=== PATIENT | male | born 1950 | race Caucasian/White ===

== ENCOUNTER 2016-09-08 13:51 | Outpatient (CLI) | payer MEDICARE, OTHER | END 2016-09-08 13:52 | disposition home or self-care (01) | DX: E03.9 Hypothyroidism, unspecified (principal); Z79.899 Other long term (current) drug therapy ==

== ENCOUNTER 2016-10-07 10:33 | Outpatient (CLI) | payer MEDICARE, OTHER | END 2016-10-07 10:34 | disposition home or self-care (01) | DX: M85.89 Other specified disorders of bone density and structure, multiple sites (principal) ==

== ENCOUNTER 2016-10-14 11:54 | Emergency (ER) | payer MEDICARE, OTHER ==
[2016-10-14] MEDS ORDERED: diltiaZEM INJ 5 MG/ML VIAL IVP STA (12:14)
[2016-10-14] MEDS ORDERED: diltiaZEM INJ 5 MG/ML VIAL ONE (12:18)
[2016-10-14] MEDS ORDERED: SODIUM CHLORIDE 0.9% 1,000 ML IV ONE (12:20)
[2016-10-14] MEDS ORDERED: TETANUS/DIPHTHERIA/PERTUSSIS 0.5 ML SYRINGE IM ONE (12:24)
== END 2016-10-14 13:35 | disposition home or self-care (01) ==
DX: I48.91 Unspecified atrial fibrillation (principal); I48.92 Unspecified atrial flutter; I44.4 Left anterior fascicular block; I10 Essential (primary) hypertension; I25.2 Old myocardial infarction; Z79.82 Long term (current) use of aspirin

== ENCOUNTER 2016-11-16 09:05 | Outpatient (CLI) | payer MEDICARE, OTHER ==
[2016-11-16 18:09] LABS: CHOL/HDL RATIO 4.1 (<5.0); CHOLESTEROL 123 mg/dL; HDL CHOLESTEROL 30 mg/dL; LDL/HDL RATIO 2.2 (<3.6); TRIGLYCERIDES 128 mg/dL; VLDL CHOLESTEROL 26 mg/dL
== END 2016-11-16 09:06 | disposition home or self-care (01) ==
LOC: LAB.F 09:05
PROVIDERS: ATTEND Internal Medicine Cardiovascular Disease
DX: I25.10 Atherosclerotic heart disease of native coronary artery without angina pectoris (principal); E78.5 Hyperlipidemia, unspecified
CPT/HCPCS: 36415; 80061

== ENCOUNTER 2016-11-24 14:13 | Outpatient (CLI) | payer MEDICARE, OTHER ==
--- NOTE | 2016-11-25 09:10 | XRAY Report ---
THREE-VIEW LEFT KNEE: 11/24/2016 CLINICAL INDICATION: Pain. FINDINGS: AP, lateral, sunrise views of the left knee demonstrate mild osteoarthritis, with small os teophytes. There is no evidence of acute fracture or dislocation. No effusion is present. IMPRESSION: MILD LEFT KNEE OSTEOARTHRITIS. JOB #: [id number] EXT JOB #:[id number]
--- NOTE | 2016-11-25 09:10 | XRAY Report ---
LEFT HIP AND PELVIS: 11/24/2016 CLINICAL INDICATION: Pain. FINDINGS: Frontal view of the hips and pelvis and frogleg lateral view of the left hip demonstrate m ild left hip osteoarthritis. Fracture fixation hardware is noted in the proximal right femur. There is no evidence of acute fracture or dislocation. IMPRESSION: MILD LEFT HIP OSTEOARTHRITIS. JOB #: [id number] EXT JOB #:[id number]
== END 2016-11-24 14:14 | disposition home or self-care (01) ==
LOC: DI 14:13
PROVIDERS: ATTEND Internal Medicine
DX: M17.12 Unilateral primary osteoarthritis, left knee (principal); M16.12 Unilateral primary osteoarthritis, left hip

== ENCOUNTER 2016-12-17 09:28 | Emergency (ER) | payer MEDICARE, OTHER ==
[2016-12-17] MEDS ORDERED: diltiaZEM INJ 5 MG/ML VIAL IVP STA (09:49)
[2016-12-17] MEDS ORDERED: SODIUM CHLORIDE 0.9% 1,000 ML IV ONE ×2 (09:49→09:52)
--- NOTE | 2016-12-17 09:51 | ED Physician Documentation ---
History of Present Illness - Stated complaint Stated Complaint: RAPID HEART RATE - Chief complaint Chief Complaint: Cardiac - History obtained from History obtained from: Patient, Family - History of Present Illness Timing: Enter time (429), Today - Additonal information Additional information: 66-year-old male with a history of hypertension coronary artery disease with stents and intermittent atrial fibrillation awoke this morning at 04 30 with a feeling of fluttering in his chest and dyspnea. He recognized this feeling as atrial fibrillation and has come to the hospital. He recognizes his risk for this as spending the day yesterday cooking and drinking beer. He states the last time this happened he had spent the day prior cooking and drinking wine. Review of Systems Constitutional: denies: Fever, Chills Eyes: denies: Decreased vision Ears: denies: Ear pain Nose: denies: Congestion Throat: denies: Sore throat Cardiac: reports: Palpitations. denies: Chest pain / pressure Respiratory: reports: Dyspnea. denies: Cough GI: denies: Abdominal Pain, Nausea, Vomiting : denies: Dysuria, Frequency Skin: denies: Rash Musculoskeletal: denies: Neck pain, Back pain, Extremity pain Neurologic: denies: Generalized weakness, Focal weakness, Numbness PD PAST MEDICAL HISTORY - Past Medical History Past Medical History: Yes Cardiovascular: Hypertension, DC, Atrial fibrillation - Past Surgical History Past Surgical History: Yes Cardiovascular: Coronary stent - Present Medications Home Medications: Ambulatory Orders Medication Instructions Recorded Confirmed Aspirin [Aspir-Low] 1 tab PO DAILY 05/16/16 12/17/16 Levothyroxine Sodium 125 mg PO DAILY 05/16/16 12/17/16 Losartan [Cozaar] 1 tab PO DAILY 05/16/16 12/17/16 Metoprolol Tartrate 25 mg PO DAILY 05/16/16 12/17/16 Multivitamin [Multivitamins] 1 tab PO DAILY 05/16/16 12/17/16 Omeprazole 20 mg PO BID 05/16/16 12/17/16 Rosuvastatin [Crestor] 20 mg PO DAILY 05/16/16 12/17/16 hydroCHLOROthiazide [Hydrodiuril] 12.5 mg PO DAILY 05/16/16 12/17/16 - Allergies Allergies/Adverse Reactions: Allergies Allergy/AdvReac Type Severity Reaction Status Date / Time atorvastatin AdvReac Severe Edema Verified 10/14/16 12:33 - Social History Does the pt smoke?: No Does the pt drink ETOH?: No Does the pt have substance abuse?: No PD ED PE NORMAL - Vitals Vital signs reviewed: Yes (tachy and hypertensive ) - General General: Alert and oriented X 3, No acute distress, Well developed/nourished - HEENT HEENT: Atraumatic, PERRL, EOMI - Neck Neck: Supple, no meningeal sign - Cardiac Cardiac: No murmur, Other (irregularly irregular) - Respiratory Respiratory: No respiratory distress, Clear bilaterally - Abdomen Abdomen: Soft, Non tender - Back Back: No CVA TTP, No spinal TTP - Derm Derm: Normal color, Warm and dry, No rash - Extremities Extremities: No deformity, No edema - Neuro Neuro: Alert and oriented X 3, No motor deficit, No sensory deficit, Normal speech - Psych Psych: Normal mood, Normal affect Results - Vitals Vitals: Vital Signs - 24 hr 12/17/16 12/17/16 12/17/16 09:34 09:54 10:00 Temperature 36.6 C Heart Rate 124 H 110 H 78 Respiratory 18 20 21 Rate Blood Pressure 151/101 H 117/79 105/60 O2 Saturation 96 96 95 12/17/16 12/17/16 10:05 11:07 Temperature Heart Rate 78 57 L Respiratory 16 Rate Blood Pressure 105/60 130/76 O2 Saturation 96 99 Oxygen O2 Source Room air - EKG (time done) 0939 Rate: Rate (enter#) (142) Rhythm: Atrial flutter Sigel: LAD Intervals: Prolonged QT Compare to prior EKG: Changed from prior EKG (SPT 10-14-16 rhythm has changed and rate has increased. ) Computer interpretation: Agree with computer 1041 Rate: Rate (enter#) (57) Rhythm: NSR Sigel: LAD Compare to prior EKG: Changed from prior EKG (rhythm has converted and rate is slower) Computer interpretation: Agree with computer - Labs Labs: Laboratory Tests 12/17/16 12/17/16 12/17/16 09:36 09:36 09:36 WBC 11.6 H RBC 5.11 Hgb 15.4 Hct 45.8 MCV 89.7 MCH 30.2 MCHC 33.6 RDW 13.5 Plt Count 177 MPV 9.1 Neut # 8.0 H Lymph # 1.8 Fisher # 0.8 Eos # 1.0 H Baso # 0.1 Absolute Nucleated RBC 0.00 Nucleated RBCs 0.0 Sodium 141 Potassium 4.2 Chloride 106 Carbon Dioxide 25 Anion Gap 10.0 BUN 14 Creatinine 0.8 Estimated GFR (MDRD) 96 Glucose 108 H Calcium 9.6 Total Bilirubin 0.6 AST 35 ALT 37 Alkaline Phosphatase 40 L Troponin I < 0.04 Total Protein 7.5 Albumin 4.7 Globulin 2.8 Albumin/Globulin Ratio 1.7 Lipase 19 L Procedures - IVC sono (time) 0948 Bedside IVC sono: IVC measures (cm) (0.87), IVC collapsed c insp (cm) (complete) , Dehydration PD MEDICAL DECISION MAKING - ED course Complexity details: considered differential, d/w patient ED course: 66 y/o male with a history of afib proxysmal has developed afib with rapid rate and he is dehydrated. He is given IV saline and diltiazem. The patient has conversion to sinus rhythm and feels well. Departure - Departure Disposition: 01 Home, Self Care Clinical Impression: Atrial fib/flutter, transient, Dehydration Condition: Stable Instructions: ED Dehydration, ED Paroxysmal Atrial Flutter Follow-Up: Hoang Richardson MD [Primary Care Provider] - Discharge Date/Time: 12/17/16 11:08
[2016-12-17] MEDS ORDERED: diltiaZEM INJ 5 MG/ML VIAL ONE (09:52)
[2016-12-17 10:15] LABS: BASOPHILS # (AUTO) 0.1 10^3/uL (0.0-0.1); EOSINOPHILS % (AUTO) 8.5 %; HCT - HEMATOCRIT 45.8 % (42.0-52.0); HGB - HEMOGLOBIN 15.4 g/dL (14.0-18.0); LYMPHOCYTES # (AUTO) 1.8 10^3/uL (1.5-3.5); LYMPHOCYTES % (AUTO) 15.3 %; MEAN CORPUSCULAR HEMOGLOBIN 30.2 pg (27.0-31.0); MEAN CORPUSCULAR HGB CONC 33.6 g/dL (32.0-36.0); MEAN CORPUSCULAR VOLUME 89.7 fL (80.0-94.0); MEAN PLATELET VOLUME 9.1 fL (7.4-11.4); MONOCYTES # (AUTO) 0.8 10^3/uL (0.0-1.0); MONOCYTES % (AUTO) 6.7 %; NEUTROPHILS % (AUTO) 68.5 %; RED BLOOD COUNT 5.11 10^6/uL (4.70-6.10); RED CELL DISTRIBUTION WIDTH 13.5 % (12.0-15.0); UNCORRECTED WHITE BLOOD COUNT 11.6 x10^3/uL; WHITE BLOOD COUNT 11.6 x10^3/uL (4.8-10.8)
[2016-12-17 10:23] LABS: ALBUMIN/GLOBULIN RATIO 1.7 (1.0-2.2); BILIRUBIN,TOTAL 0.6 mg/dL (0.2-1.0); CALCIUM 9.6 mg/dL (8.5-10.3); CREATININE 0.8 mg/dL (0.6-1.2); POTASSIUM 4.2 mmol/L (3.5-5.0); TOTAL PROTEIN 7.5 g/dL (6.7-8.2)
[2016-12-17 11:08] VITALS: BP 130/76
== END 2016-12-17 11:08 | disposition home or self-care (01) ==
LOC: ED 09:28
DX: E86.0 Dehydration (principal); I48.0 Paroxysmal atrial fibrillation; I48.92 Unspecified atrial flutter; I10 Essential (primary) hypertension; I25.2 Old myocardial infarction; I25.10 Atherosclerotic heart disease of native coronary artery without angina pectoris; Z79.82 Long term (current) use of aspirin; Z95.5 Presence of coronary angioplasty implant and graft
CPT/HCPCS: 36415; 80053; 83690; 84484; 85025; 93005; 96374; 99284

== ENCOUNTER 2017-05-17 14:04 | Outpatient (CLI) | payer MEDICARE, OTHER ==
[2017-05-17 18:53] LABS: URIC ACID 5.3 mg/dL (2.6-7.2)
== END 2017-05-17 14:05 | disposition home or self-care (01) ==
LOC: LAB.F 14:04
PROVIDERS: ATTEND Internal Medicine
DX: M19.90 Unspecified osteoarthritis, unspecified site (principal)
CPT/HCPCS: 36415; 84550; 85651; 86038; 86140; 86430

== ENCOUNTER 2017-06-09 08:40 | Outpatient (CLI) | payer MEDICARE, OTHER ==
[2017-06-09 10:29] LABS: CALCIUM 9.4 mg/dL (8.5-10.3); CREATININE 0.8 mg/dL (0.6-1.2)
== END 2017-06-09 08:41 | disposition home or self-care (01) ==
LOC: LAB.F 08:40
PROVIDERS: ATTEND Internal Medicine Cardiovascular Disease
DX: I25.10 Atherosclerotic heart disease of native coronary artery without angina pectoris (principal)
CPT/HCPCS: 36415; 80048

== ENCOUNTER 2017-06-21 13:43 | Outpatient (CLI) | payer MEDICARE, OTHER | END 2017-06-21 13:44 | disposition home or self-care (01) | LOC: DI 13:43 | PROVIDERS: ATTEND Internal Medicine Cardiovascular Disease | DX: I48.92 Unspecified atrial flutter (principal); I35.1 Nonrheumatic aortic (valve) insufficiency | CPT/HCPCS: 93306 ==

== ENCOUNTER 2017-08-10 10:56 | Outpatient (CLI) | payer MEDICARE, OTHER ==
--- NOTE | 2017-08-11 10:25 | XRAY Report ---
THREE VIEW LEFT HAND: 08/10/2017 CLINICAL INDICATION: Trigger fingers. FINDINGS: AP, lateral, oblique views of the left hand demonstrate severe osteoarthritic changes in the distal interphalangeal joints of the index and middle fingers, with lesser osteoarthritic changes in the remaining interphalangeal joints. There is no evidence of acute fracture. A metallic foreign body is noted in the palmar soft tissues of the middle finger, overlying the middle phalanx, and previous screw fixation of the distal radial ulnar joint is noted. IMPRESSION: OSTEOARTHRITIS, WORST IN THE DISTAL INTERPHALANGEAL JOINTS OF THE INDEX AND MIDDLE FINGERS. TD: 08/10/2017 17:22 RAYSHAWN
== END 2017-08-10 10:57 | disposition home or self-care (01) ==
LOC: DI.S 10:56
PROVIDERS: ATTEND Internal Medicine Rheumatology
DX: M19.042 Primary osteoarthritis, left hand (principal)

== ENCOUNTER 2017-08-16 08:31 | Outpatient (CLI) | payer MEDICARE, OTHER ==
[2017-08-16 10:53] LABS: BASOPHILS # (AUTO) 0.1 10^3/uL (0.0-0.1); BASOPHILS % (AUTO) 0.9 %; EOSINOPHILS # (AUTO) 0.3 10^3/uL (0.0-0.7); EOSINOPHILS % (AUTO) 3.8 %; HGB - HEMOGLOBIN 14.9 g/dL (14.0-18.0); LYMPHOCYTES # (AUTO) 1.9 10^3/uL (1.5-3.5); LYMPHOCYTES % (AUTO) 22.8 %; MEAN CORPUSCULAR HEMOGLOBIN 30.7 pg (27.0-31.0); MEAN CORPUSCULAR HGB CONC 34.3 g/dL (32.0-36.0); MEAN CORPUSCULAR VOLUME 89.6 fL (80.0-94.0); MEAN PLATELET VOLUME 8.9 fL (7.4-11.4); MONOCYTES # (AUTO) 0.6 10^3/uL (0.0-1.0); MONOCYTES % (AUTO) 7.3 %; NEUTROPHILS # (AUTO) 5.5 10^3/uL (1.5-6.6); NEUTROPHILS % (AUTO) 65.2 %; PLT - PLATELET COUNT 193 10^3/uL (130-450); RED BLOOD COUNT 4.86 10^6/uL (4.70-6.10); RED CELL DISTRIBUTION WIDTH 13.9 % (12.0-15.0); WHITE BLOOD COUNT 8.4 x10^3/uL (4.8-10.8)
[2017-08-16 10:54] LABS: ALBUMIN 4.4 g/dL (3.2-5.5); ALBUMIN/GLOBULIN RATIO 1.6 (1.0-2.2); ALKALINE PHOSPHATASE 39 IU/L (42-121); ALT ALANINE AMINOTRANSFERASE 33 IU/L (10-60); AST ASPARTATE AMINOTRANSFERASE 27 IU/L (10-42); BILIRUBIN,TOTAL 0.6 mg/dL (0.2-1.0); BUN - BLOOD UREA NITROGEN 15 mg/dL (6-20); CALCIUM 9.2 mg/dL (8.5-10.3); CARBON DIOXIDE - CO2 24 mmol/L (21-32); CHLORIDE 104 mmol/L (101-111); CHOL/HDL RATIO 7.1 (<5.0); CHOLESTEROL 207 mg/dL; CREATININE 0.9 mg/dL (0.6-1.2); GFR - MDRD 84 (>89); GLUCOSE 105 mg/dL (70-100); HDL CHOLESTEROL 29 mg/dL; LDL CHOLESTEROL,CALCULATED 115 mg/dL; SODIUM 138 mmol/L (135-145); TOTAL PROTEIN 7.1 g/dL (6.7-8.2); VLDL CHOLESTEROL 63 mg/dL
== END 2017-08-16 08:32 | disposition home or self-care (01) ==
LOC: LAB.F 08:31
PROVIDERS: ATTEND Internal Medicine
DX: I48.92 Unspecified atrial flutter (principal); I10 Essential (primary) hypertension; E78.5 Hyperlipidemia, unspecified; I25.10 Atherosclerotic heart disease of native coronary artery without angina pectoris; E03.9 Hypothyroidism, unspecified
CPT/HCPCS: 36415; 80053; 80061; 83721; 84443; 85025

== ENCOUNTER 2017-11-01 09:10 | Outpatient (CLI) | payer MEDICARE, OTHER ==
[2017-11-01 17:59] LABS: ALT ALANINE AMINOTRANSFERASE 33 IU/L (10-60); AST ASPARTATE AMINOTRANSFERASE 31 IU/L (10-42); CHOL/HDL RATIO 4.3 (<5.0); CHOLESTEROL 152 mg/dL; HDL CHOLESTEROL 35 mg/dL; LDL CHOLESTEROL,CALCULATED 79 mg/dL; LDL/HDL RATIO 2.3 (<3.6); VLDL CHOLESTEROL 38 mg/dL
== END 2017-11-01 09:11 | disposition home or self-care (01) ==
LOC: LAB.F 09:10
PROVIDERS: ATTEND Internal Medicine
DX: E78.5 Hyperlipidemia, unspecified (principal); Z79.899 Other long term (current) drug therapy
CPT/HCPCS: 36415; 80061; 83721; 84450; 84460

== ENCOUNTER 2018-12-17 08:35 | Outpatient (CLI) | payer MEDICARE, OTHER ==
[2018-12-17 17:07] LABS: BASOPHILS # (AUTO) 0.1 10^3/uL (0.0-0.1); BASOPHILS % (AUTO) 0.9 %; EOSINOPHILS # (AUTO) 0.7 10^3/uL (0.0-0.7); EOSINOPHILS % (AUTO) 9.2 %; HGB - HEMOGLOBIN 14.4 g/dL (14.0-18.0); LYMPHOCYTES # (AUTO) 1.8 10^3/uL (1.5-3.5); LYMPHOCYTES % (AUTO) 22.7 %; MEAN CORPUSCULAR HEMOGLOBIN 30.5 pg (27.0-31.0); MEAN CORPUSCULAR HGB CONC 32.1 g/dL (32.0-36.0); MEAN CORPUSCULAR VOLUME 95.1 fL (80.0-94.0); MEAN PLATELET VOLUME 10.8 fL (7.4-11.4); MONOCYTES # (AUTO) 0.6 10^3/uL (0.0-1.0); MONOCYTES % (AUTO) 7.5 %; NEUTROPHILS # (AUTO) 4.7 10^3/uL (1.5-6.6); NEUTROPHILS % (AUTO) 59.3 %; PLT - PLATELET COUNT 196 10^3/uL (130-450); RED BLOOD COUNT 4.72 10^6/uL (4.70-6.10); WHITE BLOOD COUNT 7.9 x10^3/uL (4.8-10.8)
[2018-12-17 17:33] LABS: ALBUMIN 4.4 g/dL (3.2-5.5); ALBUMIN/GLOBULIN RATIO 1.7 (1.0-2.2); ALKALINE PHOSPHATASE 37 IU/L (42-121); ALT ALANINE AMINOTRANSFERASE 43 IU/L (10-60); AST ASPARTATE AMINOTRANSFERASE 41 IU/L (10-42); BILIRUBIN,TOTAL 0.5 mg/dL (0.2-1.0); BUN - BLOOD UREA NITROGEN 15 mg/dL (6-20); CALCIUM 9.2 mg/dL (8.5-10.3); CARBON DIOXIDE - CO2 23 mmol/L (21-32); CHLORIDE 104 mmol/L (101-111); CHOL/HDL RATIO 4.5 (<5.0); CHOLESTEROL 149 mg/dL; CREATININE 0.8 mg/dL (0.6-1.2); CRP - C-REACTIVE PROTEIN 1.1 mg/dL (0-1.0); GFR - MDRD 96 (>89); GLUCOSE 117 mg/dL (70-100); HDL CHOLESTEROL 33 mg/dL; LDL CHOLESTEROL,CALCULATED 59 mg/dL; LDL/HDL RATIO 1.8 (<3.6); SODIUM 139 mmol/L (135-145); URIC ACID 6.1 mg/dL (2.6-7.2); VLDL CHOLESTEROL 57 mg/dL
[2018-12-17 18:52] LABS: RHEUMATOID FACTOR NEGATIVE (Negative)
[2018-12-21 19:16] LABS: ANA SCREEN POSITIVE (NEGATIVE)
== END 2018-12-17 08:36 | disposition home or self-care (01) ==
LOC: LAB.F 08:35
PROVIDERS: ATTEND Physician Assistant Medical
DX: E78.5 Hyperlipidemia, unspecified (principal); I10 Essential (primary) hypertension; Z12.5 Encounter for screening for malignant neoplasm of prostate
CPT/HCPCS: 36415; 80053; 80061; 84550; 85025; 85651; 86038; 86140; 86200; 86430; G0103; 83721; 84153; 85027

== ENCOUNTER 2019-07-16 07:31 | Outpatient (CLI) | payer MEDICARE, OTHER ==
[2019-07-16 10:13] LABS: CHOL/HDL RATIO 3.6 (<5.0); CHOLESTEROL 135 mg/dL; HDL CHOLESTEROL 37 mg/dL; LDL CHOLESTEROL,CALCULATED 68 mg/dL; LDL/HDL RATIO 1.8 (<3.6); VLDL CHOLESTEROL 30 mg/dL
[2019-07-16 10:20] LABS: HB2 TOTAL 15.5 g/dL; HEMOGLOBIN A1C 0.69 g/dL; HEMOGLOBIN A1C % 6.2 % (4.6-6.2)
[2019-07-16 13:35] LABS: FREE T4 (FREE THYROXINE) 0.75 ng/dL (0.58-1.64)
== END 2019-07-16 07:32 | disposition home or self-care (01) ==
LOC: LAB.S 07:31
PROVIDERS: ATTEND Physician Assistant Medical
DX: E78.5 Hyperlipidemia, unspecified (principal); R73.01 Impaired fasting glucose; E03.9 Hypothyroidism, unspecified
CPT/HCPCS: 36415; 80061; 83036; 83721; 84439; 84443

== ENCOUNTER 2019-08-02 14:45 | Outpatient (CLI) | payer MEDICARE, OTHER | END 2019-08-02 14:46 | disposition home or self-care (01) | LOC: LAB.S 14:45 | PROVIDERS: ATTEND Physician Assistant Medical | DX: E03.9 Hypothyroidism, unspecified (principal) | CPT/HCPCS: 36415; 84481 ==

== ENCOUNTER 2019-09-19 07:00 | Outpatient (CLI) | payer MEDICARE, OTHER ==
[2019-09-19 16:46] LABS: BASOPHILS # (AUTO) 0.1 10^3/uL (0.0-0.1); BASOPHILS % (AUTO) 0.7 %; EOSINOPHILS # (AUTO) 0.3 10^3/uL (0.0-0.7); EOSINOPHILS % (AUTO) 4.6 %; HGB - HEMOGLOBIN 14.4 g/dL (14.0-18.0); LYMPHOCYTES # (AUTO) 1.9 10^3/uL (1.5-3.5); MEAN CORPUSCULAR HEMOGLOBIN 30.1 pg (27.0-31.0); MEAN CORPUSCULAR HGB CONC 31.4 g/dL (32.0-36.0); MEAN PLATELET VOLUME 12.2 fL (7.4-11.4); MONOCYTES # (AUTO) 0.7 10^3/uL (0.0-1.0); MONOCYTES % (AUTO) 9.9 %; NEUTROPHILS # (AUTO) 4.2 10^3/uL (1.5-6.6); NEUTROPHILS % (AUTO) 58.2 %; PLT - PLATELET COUNT 170 10^3/uL (130-450); RED BLOOD COUNT 4.78 10^6/uL (4.70-6.10); WHITE BLOOD COUNT 7.2 x10^3/uL (4.8-10.8)
[2019-09-19 17:25] LABS: CALCIUM 9.4 mg/dL (8.5-10.3); CREATININE 0.7 mg/dL (0.6-1.2)
[2019-09-19 18:23] LABS: FREE T4 (FREE THYROXINE) 1.13 ng/dL (0.58-1.64)
== END 2019-09-19 23:59 | disposition home or self-care (01) ==
LOC: LAB.WCP 07:00
PROVIDERS: ATTEND Registered Nurse
DX: E78.5 Hyperlipidemia, unspecified (principal); K21.9 Gastro-esophageal reflux disease without esophagitis; F41.8 Other specified anxiety disorders; I10 Essential (primary) hypertension; I25.10 Atherosclerotic heart disease of native coronary artery without angina pectoris
CPT/HCPCS: 36415; 80048; 84439; 84443; 85025

== ENCOUNTER 2019-12-20 10:35 | Outpatient (CLI) | payer MEDICARE, OTHER ==
[2019-12-20 14:55] LABS: FREE T3 2.97 pg/mL (2.5-3.9)
[2019-12-20 15:36] LABS: FREE T4 (FREE THYROXINE) 0.96 ng/dL (0.58-1.64)
== END 2019-12-20 10:36 | disposition home or self-care (01) ==
LOC: LAB.S 10:35
PROVIDERS: ATTEND Registered Nurse
DX: E03.9 Hypothyroidism, unspecified (principal)
CPT/HCPCS: 36415; 84439; 84443; 84481

== ENCOUNTER 2020-01-14 11:01 | Outpatient (CLI) | payer MEDICARE, OTHER ==
--- NOTE | 2020-01-14 12:59 | XRAY Report ---
PROCEDURE: Chest 2 View X-Ray INDICATIONS: BONY ABNORMALITY TECHNIQUE: 2 view(s) of the chest. COMPARISON: None. FINDINGS: AP view marker was placed on the skin just superior to the right sternoclavicular joint. There is no obvious underlying bony abnormality, although it should be noted that radiographs are poor sensitivit y in evaluation of the sternum and sternoclavicular joints. Right rotator cuff repair anchors noted. Degenerative changes of both acromioclavicular joints and gl enohumeral joints noted. Bony structures of the thorax are otherwise grossly intact and unremarkable. Symmetrically expanded and clear lungs. No pleural effusion or pneumothorax. Tortuous thoracic aorta. Heart size is normal. IMPRESSION: No plain radiographic abnormality of the right medial clavicle or sternoclavicular joint, although th at should be noted that since radiograph provide limited sensitivity evaluation of this anatomic vianney on. CT of the chest or MRI of the sternal clavicular joints would be recommended for more comprehensi ve evaluation if there is continued clinical concern. Reviewed by: Osvaldo Lozada MD on 01/14/2020 12:57 PM PDT Approved by: Osvaldo Lozada MD on 01/14/2020 12:57 PM PDT Station ID: [id number]
--- NOTE | 2020-01-14 17:32 | XRAY Report ---
PROCEDURE: Cervical Spine 2 View INDICATIONS: BONY ABNORMALITY TECHNIQUE: 3 view(s) of the cervical spine were acquired. COMPARISON: None. FINDINGS: Bones: No fractures or dislocations to the C7/T1 level. The lateral masses of C1 appear intact on t he odontoid view. No suspicious bony lesions. Mild degenerative changes are present within the mid cervical spine. No compression deformities. Soft tissues: No prevertebral soft tissue swelling. IMPRESSION: Mild degenerative change. Reviewed by: Celia Oliva MD on 01/14/2020 5:31 PM PDT Approved by: Celia Oliva MD on 01/14/2020 5:31 PM PDT Station ID: [id number]
== END 2020-01-14 11:02 | disposition home or self-care (01) ==
LOC: DI.S 11:01
PROVIDERS: ATTEND Registered Nurse
DX: Q68.8 Other specified congenital musculoskeletal deformities (principal); M47.812 Spondylosis without myelopathy or radiculopathy, cervical region
CPT/HCPCS: 71046; 72040

== ENCOUNTER 2020-01-22 13:12 | Outpatient (CLI) | payer MEDICARE, OTHER ==
--- NOTE | 2020-01-22 14:04 | CT Report ---
PROCEDURE: CHEST WO INDICATIONS: Bony abnormality. This is specifically described as a growing bony projection of the rig ht medial clavicular head and associated with radiation of pain into the neck. Also, TECHNIQUE: Noncontrast 5 mm thick sections acquired from the pulmonary apices to the posterior costophrenic angl es. 7 mm thick coronal and sagittal MIP reformats were then acquired. For radiation dose reduction, the following was used: automated exposure control, adjustment of mA and/or kV according to patient size. COMPARISON: FINDINGS: Image quality: Excellent. Lungs and pleura: No acute air space opacities. No pleural effusions or pneumothorax. Central and peripheral airways are patent and normal in caliber. Mediastinum: Heart size is normal. No pericardial effusion. No mediastinal adenopathy by size crit eria. Thoracic aorta and central pulmonary arteries are normal in size. Esophagus is normal in gale yemi. No hiatal hernia. Bones and chest wall: No suspicious bony lesions but there is superior-directed osteoarthritic spurr ing at the medial right clavicular head, just below the area of surface marker placement indicating t he site of patient's current clinical concern in that area near the sternal notch. There also is asym metric anterior projecting osteophyte formation at the fourth intercostal space on the right, seen on CT series 4 image 155. No osteolytic or blastic bone lesion is found, no soft tissue mass is identif ied.. No vertebral body compression fractures. No axillary or supraclavicular adenopathy by size cr iteria. The thyroid is normal in size. Abdomen: Visualized upper abdominal solid organs and bowel loops appear normal in the absence of con trast. IMPRESSION: Degenerative changes at the superior aspect of the medial right clavicular head. Also, degenerative o steophytic spurring is asymmetrically prominent on the right the fourth intercostal space. No suspici on for underlying infection or neoplasm. Reviewed by: Dong Payne MD on 01/22/2020 2:03 PM PDT Approved by: Dong Payne MD on 01/22/2020 2:03 PM PDT Station ID: [id number]
== END 2020-01-22 13:13 | disposition home or self-care (01) ==
LOC: DI 13:12
PROVIDERS: ATTEND Registered Nurse
DX: Q68.8 Other specified congenital musculoskeletal deformities (principal); M54.2 Cervicalgia; M19.011 Primary osteoarthritis, right shoulder; M25.711 Osteophyte, right shoulder
CPT/HCPCS: 71250

== ENCOUNTER 2020-07-08 08:05 | Outpatient (CLI) | payer MEDICARE, OTHER ==
[2020-07-08 16:06] LABS: BASOPHILS # (AUTO) 0.1 10^3/uL (0.0-0.1); BASOPHILS % (AUTO) 1.2 %; EOSINOPHILS # (AUTO) 0.4 10^3/uL (0.0-0.7); EOSINOPHILS % (AUTO) 6.2 %; HGB - HEMOGLOBIN 14.4 g/dL (14.0-18.0); LYMPHOCYTES # (AUTO) 1.5 10^3/uL (1.5-3.5); LYMPHOCYTES % (AUTO) 23.2 %; MEAN CORPUSCULAR HEMOGLOBIN 31.2 pg (27.0-31.0); MEAN CORPUSCULAR HGB CONC 32.1 g/dL (32.0-36.0); MEAN CORPUSCULAR VOLUME 97.2 fL (80.0-94.0); MEAN PLATELET VOLUME 10.6 fL (7.4-11.4); MONOCYTES # (AUTO) 0.6 10^3/uL (0.0-1.0); MONOCYTES % (AUTO) 8.3 %; NEUTROPHILS % (AUTO) 60.5 %; PLT - PLATELET COUNT 185 10^3/uL (130-450); RED BLOOD COUNT 4.61 10^6/uL (4.70-6.10); RED CELL DISTRIBUTION WIDTH 13.2 % (12.0-15.0); WHITE BLOOD COUNT 6.6 x10^3/uL (4.8-10.8)
[2020-07-08 16:50] LABS: ALBUMIN 4.5 g/dL (3.2-5.5); ALBUMIN/GLOBULIN RATIO 1.8 (1.0-2.2); ALKALINE PHOSPHATASE 43 IU/L (42-121); ALT ALANINE AMINOTRANSFERASE 27 IU/L (10-60); AST ASPARTATE AMINOTRANSFERASE 27 IU/L (10-42); BILIRUBIN,TOTAL 0.7 mg/dL (0.2-1.0); BUN - BLOOD UREA NITROGEN 12 mg/dL (6-20); CALCIUM 9.4 mg/dL (8.5-10.3); CARBON DIOXIDE - CO2 25 mmol/L (21-32); CHLORIDE 105 mmol/L (101-111); CHOL/HDL RATIO 3.3 (<5.0); CHOLESTEROL 156 mg/dL; CREATININE 0.8 mg/dL (0.6-1.2); GLUCOSE 102 mg/dL (70-100); HDL CHOLESTEROL 47 mg/dL; LDL CHOLESTEROL,CALCULATED 84 mg/dL; LDL/HDL RATIO 1.8 (<3.6); SODIUM 141 mmol/L (135-145); VLDL CHOLESTEROL 25 mg/dL
[2020-07-08 19:19] LABS: HEMOGLOBIN A1c% 5.9 % (4.27-6.07)
== END 2020-07-08 08:06 | disposition home or self-care (01) ==
LOC: LAB.S 08:05
PROVIDERS: ATTEND Registered Nurse
DX: E78.5 Hyperlipidemia, unspecified (principal); R73.01 Impaired fasting glucose; I10 Essential (primary) hypertension; R53.83 Other fatigue; F41.8 Other specified anxiety disorders
CPT/HCPCS: 36415; 80053; 80061; 83036; 83721; 84153; 84443; 85025

== ENCOUNTER 2020-09-30 10:09 | Outpatient (CLI) | payer MEDICARE, OTHER ==
[2020-09-30 14:53] LABS: T4 (THYROXINE) 6.82 ug/dL (6.09-12.23)
[2020-09-30 14:57] LABS: THYROID STIMULATING HORMONE 3.11 uIU/mL (0.34-5.60)
== END 2020-09-30 10:10 | disposition home or self-care (01) ==
LOC: LAB.S 10:09
PROVIDERS: ATTEND Registered Nurse
DX: R53.83 Other fatigue (principal); E03.9 Hypothyroidism, unspecified
CPT/HCPCS: 36415; 84436; 84443; 84480

== ENCOUNTER 2020-10-04 15:41 | Outpatient (CLI) | payer MEDICARE, OTHER | END 2020-10-04 15:42 | disposition short-term general hospital (02) | LOC: EMS 15:41 | DX: R07.89 Other chest pain (principal); R42 Dizziness and giddiness; I49.9 Cardiac arrhythmia, unspecified | CPT/HCPCS: A0425; A0427 ==

== ENCOUNTER 2020-11-05 12:08 | Outpatient (CLI) | payer MEDICARE, OTHER ==
[2020-11-05 15:46] LABS: THYROID STIMULATING HORMONE 1.2 uIU/mL (0.34-5.60)
== END 2020-11-05 12:09 | disposition home or self-care (01) ==
LOC: LAB.S 12:08
PROVIDERS: ATTEND Registered Nurse
DX: E03.9 Hypothyroidism, unspecified (principal)
CPT/HCPCS: 36415; 84443

== ENCOUNTER 2021-07-01 08:00 | Outpatient (CLI) | payer MEDICARE, OTHER ==
--- NOTE | 2021-07-01 15:24 | XRAY Report ---
PROCEDURE: Chest 2 View X-Ray INDICATIONS: CHEST PAIN TECHNIQUE: 2 view(s) of the chest. COMPARISON: Chest x-ray 01/14/2020 FINDINGS: Surgical changes and devices: None. Lungs and pleura: There is mild appearance of bibasilar interstitial prominence. Mediastinum: Mediastinal contours are normal. Heart size is normal. Bones and chest wall: No suspicious bony abnormalities. Soft tissues appear unremarkable. IMPRESSION: Mild bibasilar interstitial prominence which could represent dependent change. However, appearance is suspicious for mild/developing pneumonia. Reviewed by: Bridgette Elias MD on 07/01/2021 3:22 PM PST Approved by: Bridgette Elias MD on 07/01/2021 3:22 PM PST Station ID: [id number]
== END 2021-07-01 23:59 ==
LOC: DI.S 08:00
PROVIDERS: ATTEND Registered Nurse
DX: R07.9 Chest pain, unspecified (principal); R91.8 Other nonspecific abnormal finding of lung field
CPT/HCPCS: 36415; 80053; 84484; 85025

== ENCOUNTER 2021-07-01 08:00 | Outpatient (CLI) | payer MEDICARE, OTHER ==
[2021-07-01 15:00] LABS: BASOPHILS # (AUTO) 0.1 10^3/uL (0.0-0.1); BASOPHILS % (AUTO) 0.8 %; EOSINOPHILS # (AUTO) 0.4 10^3/uL (0.0-0.7); EOSINOPHILS % (AUTO) 4.4 %; HCT - HEMATOCRIT 44.8 % (42.0-52.0); HGB - HEMOGLOBIN 14.7 g/dL (14.0-18.0); LYMPHOCYTES # (AUTO) 1.9 10^3/uL (1.5-3.5); MEAN CORPUSCULAR HEMOGLOBIN 30.1 pg (27.0-31.0); MEAN CORPUSCULAR HGB CONC 32.8 g/dL (32.0-36.0); MEAN CORPUSCULAR VOLUME 91.8 fL (80.0-94.0); MEAN PLATELET VOLUME 11.2 fL (7.4-11.4); MONOCYTES # (AUTO) 0.9 10^3/uL (0.0-1.0); MONOCYTES % (AUTO) 10.1 %; NEUTROPHILS # (AUTO) 5.3 10^3/uL (1.5-6.6); NEUTROPHILS % (AUTO) 62.3 %; PLT - PLATELET COUNT 196 10^3/uL (130-450); RED BLOOD COUNT 4.88 10^6/uL (4.70-6.10); RED CELL DISTRIBUTION WIDTH 12.9 % (12.0-15.0); WHITE BLOOD COUNT 8.4 x10^3/uL (4.8-10.8)
[2021-07-01 15:24] LABS: ALBUMIN 4.2 g/dL (3.2-5.5); ALBUMIN/GLOBULIN RATIO 1.4 (1.0-2.2); BILIRUBIN,TOTAL 0.6 mg/dL (0.2-1.0); CALCIUM 9.5 mg/dL (8.5-10.3); CREATININE 0.7 mg/dL (0.6-1.2); TOTAL PROTEIN 7.1 g/dL (6.7-8.2)
== END 2021-07-01 23:59 | disposition home or self-care (01) ==
LOC: LAB.S 08:00
PROVIDERS: ATTEND Registered Nurse
DX: R07.9 Chest pain, unspecified (principal)
CPT/HCPCS: 36415; 80053; 84484; 85025

== ENCOUNTER 2021-10-27 08:08 | Outpatient (CLI) | payer MEDICARE, OTHER ==
[2021-10-27 14:58] LABS: ALBUMIN 4.1 g/dL (3.2-5.5); ALBUMIN/GLOBULIN RATIO 1.6 (1.0-2.2); ALKALINE PHOSPHATASE 35 IU/L (42-121); ALT ALANINE AMINOTRANSFERASE 31 IU/L (10-60); AST ASPARTATE AMINOTRANSFERASE 32 IU/L (10-42); BILIRUBIN,TOTAL 0.6 mg/dL (0.2-1.0); BUN - BLOOD UREA NITROGEN 16 mg/dL (6-20); CALCIUM 9.1 mg/dL (8.5-10.3); CARBON DIOXIDE - CO2 23 mmol/L (21-32); CHLORIDE 102 mmol/L (101-111); CHOL/HDL RATIO 4.3 (<5.0); CHOLESTEROL 151 mg/dL; CREATININE 0.8 mg/dL (0.6-1.2); GFR - MDRD 95 (>89); GLUCOSE 107 mg/dL (70-100); HDL CHOLESTEROL 35 mg/dL; LDL CHOLESTEROL,CALCULATED 86 mg/dL; LDL/HDL RATIO 2.5 (<3.6); POTASSIUM 4.1 mmol/L (3.5-5.0); SODIUM 137 mmol/L (135-145); TOTAL PROTEIN 6.7 g/dL (6.7-8.2); TRIGLYCERIDES 151 mg/dL; VLDL CHOLESTEROL 30 mg/dL
[2021-10-27 15:01] LABS: BASOPHILS # (AUTO) 0.1 10^3/uL (0.0-0.1); BASOPHILS % (AUTO) 0.6 %; EOSINOPHILS # (AUTO) 0.4 10^3/uL (0.0-0.7); EOSINOPHILS % (AUTO) 4.7 %; HCT - HEMATOCRIT 45.6 % (42.0-52.0); LYMPHOCYTES # (AUTO) 1.7 10^3/uL (1.5-3.5); MEAN CORPUSCULAR HEMOGLOBIN 30.4 pg (27.0-31.0); MEAN CORPUSCULAR HGB CONC 32.9 g/dL (32.0-36.0); MEAN CORPUSCULAR VOLUME 92.5 fL (80.0-94.0); MONOCYTES # (AUTO) 0.7 10^3/uL (0.0-1.0); MONOCYTES % (AUTO) 8.7 %; NEUTROPHILS # (AUTO) 5.1 10^3/uL (1.5-6.6); NEUTROPHILS % (AUTO) 64.5 %; PLT - PLATELET COUNT 196 10^3/uL (130-450); RED BLOOD COUNT 4.93 10^6/uL (4.70-6.10); RED CELL DISTRIBUTION WIDTH 13.6 % (12.0-15.0); WHITE BLOOD COUNT 7.9 x10^3/uL (4.8-10.8)
[2021-10-27 15:04] LABS: THYROID STIMULATING HORMONE 1.82 uIU/mL (0.34-5.60)
== END 2021-10-27 08:09 | disposition home or self-care (01) ==
LOC: LAB.S 08:08
PROVIDERS: ATTEND Registered Nurse
DX: I10 Essential (primary) hypertension (principal); R73.01 Impaired fasting glucose; E78.5 Hyperlipidemia, unspecified; E03.9 Hypothyroidism, unspecified
CPT/HCPCS: 36415; 80053; 80061; 83721; 84443; 85025

== ENCOUNTER 2021-11-16 10:56 | Outpatient (CLI) | payer MEDICARE, OTHER ==
--- NOTE | 2021-11-16 12:49 | CT Report ---
PROCEDURE: CHEST WO INDICATIONS: HIST OF SMOKING AND ASBESTOS EXPOSURE TECHNIQUE: Noncontrast 1mm axial images were acquired from the pulmonary apices to the posterior costophrenic an gles. Axial 5 mm soft tissue kernel reconstructions were performed as well as 8 mm axial MIP and cor onal and sagittal 5 mm reformations. For radiation dose reduction, the following was used: automate d exposure control, adjustment of mA and/or kV according to patient size. COMPARISON: 01/22/2020 FINDINGS: Image quality: Excellent. Lungs and pleura: No acute air space opacities. Redemonstration of scattered mild pleural thickenin g and mild subpleural reticular opacities involving all lobes of the lung bilaterally. No pleural khurram cifications seen. No suspicious septal thickening or nodularity. No suspicious pulmonary nodules. No abnormal mass lesions. No substantial pleural effusions. No pneumothorax. Central and peripheral air ways are patent and normal in caliber. Mediastinum: Heart size is normal. No pericardial effusion. Extensive atherosclerotic calcificatio ns noted in the coronary arteries. No mediastinal adenopathy by size criteria. Thoracic aorta and ce ntral pulmonary arteries are normal in size. Esophagus is normal in caliber. Small hiatal hernia. Bones and chest wall: No suspicious bony lesions. No acute vertebral body compression fractures. St able appearance of moderate multilevel spondylosis of the imaged spine. No axillary or supraclavicula r adenopathy by size criteria. The thyroid is normal in size and there are no incidental findings. Abdomen: Cholelithiasis without CT evidence for acute cholecystitis. Redemonstration of partially ex ophytic right renal cyst with thin internal septations. This has increased in size now measuring 5.4 x 4.4 cm, previously 3.6 x 3.8 cm. Persistent soft tissue calcifications noted. The other visualized upper abdominal solid organs and bowel loops appear normal in the absence of contrast. IMPRESSION: 1. CT chest without acute cardiopulmonary abnormalities. 2. Mild bilateral pleural thickening without pleural calcifications. Findings may represent sequela o f prior asbestosis exposure. There are associated mild scattered subpleural reticular opacities. Find ings are seen in the bilateral hemithoraces. No significant interval change. 3. No new suspicious pulmonary nodules or masses. 4. Extensive atherosclerotic vascular calcifications. 5. Cholelithiasis without CT evidence for acute cholecystitis. 6. Interval increase in size of mildly complicated right renal cyst with thin septal calcifications. 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 CLINICAL RECOMMENDATION STATEMENTS: In patients <35 years with an ITN detected on CT, MRI, or extrathyroidal ultrasound, the Committee re commends further evaluation with dedicated thyroid ultrasound if the nodule is "e1 cm and has no susp icious imaging features, and if the patient has normal life expectancy. In patients "e35 years with an ITN detected on CT, MRI, or extrathyroidal ultrasound, the Committee r ecommends further evaluation with dedicated thyroid ultrasound if the nodule is "e1.5 cm and has no s uspicious imaging features, and if the patient has normal life expectancy. (ACR, 2014) Reviewed by: Bashir Fair MD on 11/16/2021 12:48 PM PDT Approved by: Bashir Fair MD on 11/16/2021 12:48 PM PDT Station ID: [id number]
== END 2021-11-16 10:57 | disposition home or self-care (01) ==
LOC: DI 10:56
PROVIDERS: ATTEND Registered Nurse
DX: R91.8 Other nonspecific abnormal finding of lung field (principal); Z77.090 Contact with and (suspected) exposure to asbestos; Z87.891 Personal history of nicotine dependence

== ENCOUNTER 2023-05-24 08:00 | Outpatient (CLI) | payer MEDICARE, OTHER ==
--- NOTE | 2023-05-24 19:45 | XRAY Report ---
PROCEDURE: Knee 3 View RT INDICATIONS: LEG PAIN, RIGHT TECHNIQUE: 3 views of the knee(s) were acquired. COMPARISON: None. FINDINGS: Bones: Partially visualized intramedullary lillian and interlocking screw fixation of the distal femur i s intact with no perihilar lucency to suggest hardware loosening. Mild tricompartmental joint space n arrowing with extra-articular osteophytosis of the patellofemoral compartment. No fractures or disloc ations. No suspicious bony lesions. Soft tissues: No knee joint effusion. No suspicious soft tissue calcifications or masses. IMPRESSION: 1.No acute bony abnormality. 2.Partially visualized intramedullary lillian and interlocking screw fixation in the distal femur is inta ct without complication. 3.Mild tricompartmental osteoarthritis, worse in the patellofemoral compartment. Reviewed by: Sivakumar Magdaleno MD on 05/24/2023 7:44 PM PST Approved by: Sivakumar Magdaleno MD on 05/24/2023 7:44 PM PST Station ID: [id number]
--- NOTE | 2023-05-24 19:50 | XRAY Report ---
PROCEDURE: Femur 2V RT INDICATIONS: LEG PAIN, RIGHT TECHNIQUE: 4 views of the femur were acquired. COMPARISON: Pelvis radiograph on November 24, 2016 FINDINGS: Bones: No definite fracture or dislocation of the mid to distal femur. Intramedullary lillian and inter locking screw fixation of the femur is intact with no perihardware lucency to suggest hardware loosen ing. Healed fracture deformity of the proximal femoral diaphysis. No suspicious bony lesions. Soft tissues: No suspicious soft tissue calcifications or masses. Vascular calcifications. IMPRESSION: 1.No acute bony abnormality of the mid to distal femur. 2.Intramedullary lillian and interlocking screw fixation of healed proximal femoral diaphyseal fracture i s intact without complication. 3.Please see same-day pelvis radiograph for additional findings. Reviewed by: Sivakumar Magdaleno MD on 05/24/2023 7:49 PM PST Approved by: Sivakumar Magdaleno MD on 05/24/2023 7:49 PM PST Station ID: [id number]
--- NOTE | 2023-05-24 19:55 | XRAY Report ---
PROCEDURE: Hip w/Pelvis 2-3V RT INDICATIONS: LEG PAIN, RIGHT TECHNIQUE: AP pelvis with lateral view(s) of the right hip(s). COMPARISON: Pelvis radiograph on November 24, 2016. FINDINGS: Bones: No definite fractures or dislocations. Lucency in the intertrochanteric region reflects a ski n fold, similar to prior pelvis radiograph dated November 24, 2016. Additional vertical lucency near the t hreaded screw has sclerotic margins suggesting a chronic finding. Partially visualized intramedullary lillian and interlocking screw fixation is intact. [id number] bilateral hip joint space narrowing and juxta articular osteophytosis. Mild degenerative changes of the lower lumbar spine. No suspicious bony lesions. Soft tissues: No suspicious soft tissue calcifications or masses. IMPRESSION: 1.No definite fractures or dislocations. Lucency in the intertrochanteric region reflects a skin fold , similar to prior pelvis radiograph dated November 24, 2016. If there is high clinical suspicion for a ra diographically occult fracture, consider CT for further evaluation. 2.Bpio-ff-ikuaopip bilateral hip joint osteoarthritis. 3.Please see same day femur radiograph for additional findings. Reviewed by: Sivakumar Magdaleno MD on 05/24/2023 7:53 PM PST Approved by: Sivakumar Magdaleno MD on 05/24/2023 7:53 PM PST Station ID: [id number]
== END 2023-05-24 23:59 | disposition home or self-care (01) ==
LOC: DI.S 08:00
PROVIDERS: ATTEND Emergency Medicine
DX: M79.604 Pain in right leg (principal); M16.0 Bilateral primary osteoarthritis of hip; S72.301D Unspecified fracture of shaft of right femur, subsequent encounter for closed fracture with routine healing

== ENCOUNTER 2024-02-02 10:02 | Outpatient (CLI) | payer MEDICARE, OTHER ==
--- NOTE | 2024-02-03 12:23 | Ultrasound Report ---
PROCEDURE: Aorta Screening INDICATIONS: AAA SCREENING TECHNIQUE: Real time scanning was performed of the aorta and iliac arteries, with image documentatio n. COMPARISON: Relation is made with CT, 11/11/2015 FINDINGS: Aorta: The proximal aorta is not well seen. Proximal aortic diameter measures 2.8 cm. Mid-aorta kyle sures 2.1 x 2.3 cm. Distal aortic diameter is 1.9 x 1.7 cm. Iliac arteries: Right common iliac artery measures 1.1 x 1.3 cm. Left common iliac artery measures 1.3 x 1.4 cm. Examination quality is limited by body habitus and bowel gas. IMPRESSION: Negative for aneurysm. Recommended intervals for follow-up imaging of ectatic aortas and abdominal aortic aneurysms, per ACR consensus guidelines: 2.5-2.9 cm: 5 years 3.0-3.4 cm: 3 years 3.5-3.9 cm: 2 years 4.0-4.4 cm: 1 year 4.5-4.9 cm: 6 months + endovascular referral 5.0-5.5 cm: 3-6 months + endovascular referral Reviewed by: Chaz Jenkins MD on 02/03/2024 11:22 AM HERBIE Approved by: Chaz Jenkins MD on 02/03/2024 11:22 AM HERBIE Station ID: [id number]
== END 2024-02-02 10:03 | disposition home or self-care (01) ==
LOC: DI 10:02
PROVIDERS: ATTEND Nurse Practitioner Family
DX: Z13.6 Encounter for screening for cardiovascular disorders (principal)